=== PATIENT | male | born 1970 | race Caucasian/White ===

== ENCOUNTER 2018-05-12 21:38 | Emergency (ER) | payer OTHER ==
[~2018-05-12] VITALS: Ht 180.3 cm; Wt 77.1 kg
[2018-05-12] MEDS ORDERED: IBU600 MG PO (21:49)
[2018-05-12] MEDS ORDERED: CIPRO500 MG PO (22:00)
[2018-05-12] MEDS ORDERED: DOXYCYCLINE HY100 MG PO (22:06)
== END 2018-05-12 22:20 | disposition home or self-care (01) ==
LOC: ED 21:38 → EDBD 21:39 → ED 21:39
DX: S91.332D Puncture wound without foreign body, left foot, subsequent encounter (principal); I10 Essential (primary) hypertension; Z87.891 Personal history of nicotine dependence; W22.8XXD Striking against or struck by other objects, subsequent encounter
CPT/HCPCS: 99282